=== PATIENT | male | born 1990 | race Caucasian/White ===

== ENCOUNTER 2025-06-19 07:25 | Emergency (ER) | payer OTHER, SELFPAY ==
[2025-06-19 07:35] VITALS: BP 134/81
--- NOTE | 2025-06-19 08:28 | ED.GENMED ---
History of Present Illness
General
Chief Complaint: Chest Pain
Source: patient
Exam Limitations: none
Time Seen by Provider: 06/19/25 08:28
History of Present Illness
History of Present Illness:
34-year-old male nontraumatic right sided localized chest pain started 2 days ago. Continuous nature. Worse with breathing. Also worse with coughing. No fever no sputum no shortness of breath. No radiation to the back arm or neck. No leg pain
or leg swelling. No risk factor for DVT.
Past History
Past History
ED Past Medical History: Psychiatric (Anxiety, depression)
ED Past Surgical History: Other (Scio teeth)
Social History
Tobacco: Smoker
Alcohol: Occasional
Drug: None
Personal: Single
Living: with family
Employment: Employed
Family History
Family History: Other (no significant)
Review of Systems
Review of Systems
All Other Systems: Not applicable
Constitutional: Denies fever or chills
Respiratory: Denies hemoptysis
Phy Exam
Physical Exam
Physical Exam:
GENERAL: Alert and oriented in no apparent distress
EYE: Orbits normal.
NECK: Supple, no significant adenopathy.
ENT: Pharynx without erythema
CARDIAC: Regular rate and rhythm without any obvious murmurs. Localized lower anterior chest wall tenderness. Very local. No erythema warmth or swelling
LUNGS: Clear breath sounds,normal
ABDOMEN: Soft, without focal tenderness or distention
NEUROLOGICAL: Alert and oriented , grossly non-focal
SKIN: Warm and dry, no rash or lesion, no discoloration, skin intact.
MUSCULOSKELETAL: No edema,no deformity.Good color
PSYCH: Normal and appropriate interaction.
Scores
Heart Score for Chest Pain Patients
STEMI patient?: No
History: Slightly or Non-Suspicious
ECG: Normal
Age: </= 45 years
Risk Factors: 1 or 2 Risk Factors
Troponin: </= Normal Limit
Heart Score for Chest Pain Patients: 1
Heart Score Risk: 2.5% MACE over next 6 weeks
Course
Orders/Labs/Results
Orders:
Orders
06/19/25 07:37
ECG [Electrocardiogram (*1)] Urgent
Reason for Study: Chest Pain
EKG- Treatment ONCE
06/19/25 08:32
Cardiac Monitoring- Treatment ONCE
IV Insert/Care/Rem.- Treatment PRN
CR Chest - 2 Views Urgent
Comment:
Reason For Exam: right sided cp
Pulse Ox/cont/shift [RESP] Stat
Quantity: 1
06/19/25 08:52
Basic Metabolic Panel Urgent
Complete Blood Count/With Diff Urgent
D-Dimer Urgent
Troponin I Urgent
Abnormal Lab Results
06/19/25
08:52
MCV 78.9 L fL
(80.0-94.0)
MCH 24.6 L pg
(27.0-31.0)
MCHC 31.1 L g/dL
(33.0-37.0)
MPV 11.9 H fL
(7.4-10.4)
Immature Gran % 0.6 H %
(0-0.5)
Glucose 106 H mg/dl
(70-99)
06/19/25 08:52
06/19/25 08:52
Vital Signs
Initial and Last Documented VS:
Initial Vital Signs
Temp Pulse Resp BP Pulse Ox
98.2 F 57 18 134/81 100
06/19/25 07:35 06/19/25 07:35 06/19/25 07:35 06/19/25 07:35 06/19/25 07:35
Last Documented Vital Signs
Temp Pulse Resp BP Pulse Ox
98.2 F 58 16 111/97 100
06/19/25 07:35 06/19/25 09:45 06/19/25 09:45 06/19/25 09:00 06/19/25 09:45
MDM/Problems Addressed
Differential Diagnosis Includes:
Differential would include costochondritis, spontaneous pneumothorax, atypical cardiac, PE, nonspecific pleurisy. Workup in progress. Highly doubt PE. No risk factors. No leg swelling. Will get D-dimer. Very very atypical for cardiac.
Continuous atypical localized pleuritic or musculoskeletal leg pain for days. EKG is normal. Will check troponin. Spontaneous pneumothorax also unlikely although could have a small spontaneous pneumo. Breath sounds are equal. Will check chest
x-ray.
*Pulse Oximetry
SaO2: 100
Oxygen Mode of Delivery: Room air
Patient hypoxic: no
*EKG
Interpreted by ED Provider?: Yes
Interpretation: normal
Comparison EKG: no changes
Heart Rate: 62
Rate: normal
Rhythm: sinus
[place]: normal axis
Interval: normal interval
QRS Pattern: normal QRS
Ischemia: no ischemia
*Critical Care Note
Total Time (30-74mins, 75-104mins- exclusive of procedures): Not Applicable
Data Reviewed
Review of Other/Old Records Reveals: Labs and Testing
Update Note
Update Note:
Clinically costochondritis. Medically stable. Ongoing symptoms for days with negative workup.
ED Attending Note
-
Portions of this chart may have been created with voice recognition software.� Occasional wrong word or��sound alike� substitutions may have occurred due to the inherent limitations of voice recognition software.
Discharge Plan
Departure
Patient Disposition: Home (Routine Discharge)
Date of Disposition: 06/19/25
Time of Disposition: 10:40
Patient with high blood pressure during this ER visit?: Yes
Discharge Problem:
Costochondritis
Instructions: Costochondritis (DC), BLOOD PRESSURE
Prescriptions:
No Action
clonazepam 1 MG tablet
1 mg PO BID
cephalexin 500 MG capsule
500 mg PO BID Qty: 14 0RF
Referrals:
Anneliese العراقي PA-C [Family Provider, Internal Medicine] - Follow up in 2-3 days
Interventions
Interventions:
*Risk Screen - Suicide Last Done: 06/19/25 07:35
*General Assessment Last Done: 06/19/25 07:35
*Neglect/Abuse Screening Last Done: 06/19/25 08:41
*ED- Fall Risk Assessment Last Done: 06/19/25 09:41
*ED COVID-19 Vaccine History Last Done: 06/19/25 09:41
ED- Cardiac Assessment Last Done: 06/19/25 08:42
Discharge Date and Time
Print Language: LIBYAN
[2025-06-19 08:37] VITALS: BMI 25.3
[2025-06-19 08:51] VITALS: BP 123/77
[2025-06-19 09:00] VITALS: BP 111/97
[2025-06-19 09:00] LABS: Hematocrit 42.7 % (39.0-52.0); Hemoglobin 13.3 g/dL (13.0-18.0); Mean Corp Hgb Conc. 31.1 g/dL (33.0-37.0); Mean Corpuscular Volume 78.9 fL (80.0-94.0); Nucleated Red Blood Cells % 0 % (-); Platelet Count 147 10^3/uL (130-400); Red Cell Dist. Width 13.8 % (11.5-14.5)
[2025-06-19 09:25] LABS: D-Dimer < 0.27 ug/mlFEU (0.00-0.50)
[2025-06-19 09:42] LABS: Troponin I < 0.012 ng/ml
[2025-06-19 10:02] LABS: Blood Urea Nitrogen 17 mg/dl (9-20); Calcium 9.4 mg/dl (8.4-10.2); Carbon Dioxide 27 mmol/L (22-30); Chloride 107 mmol/L (98-107); Estimated Creatinine Clearance > 125 ml/min; Glucose 106 mg/dl (70-99); Potassium 4.4 mmol/L (3.5-5.1); Sodium 142 mmol/L (135-145); eGFR > 60.00
== END 2025-06-19 10:58 | disposition home or self-care (01) ==
LOC: EMR 07:25
PROVIDERS: EMERGENCY PHYSICIAN Emergency Medicine; FAMILY PHYSICIAN Physician Assistant Medical
DX: M94.0 Chondrocostal junction syndrome [Tietze] (principal); F17.200 Nicotine dependence, unspecified, uncomplicated
CPT/HCPCS: 99285; 71046; 80048; 84484; 85025; 85379; 93005